=== PATIENT | female | born 1990 | race Hispanic/Latino ===

== ENCOUNTER 2017-07-06 00:01 | Emergency (ER) | payer OTHER ==
[~2017-07-06] VITALS: Ht 154.9 cm; Wt 53.1 kg
[2017-07-06] MEDS ORDERED: PANTOPRAZOLE 40 MG 10ML VIAL IV STA (00:17)
[2017-07-06] MEDS ORDERED: SODIUM CHLORIDE 0.9% 1000ML 1,000 ML IV STA (00:17)
[2017-07-06] MEDS ORDERED: ONDANSETRON HCL 4 MG ORAL DISINTEGRATING TAB PO ONE (00:30)
[2017-07-06 00:33] LABS: BASOPHILS % 0.1 % (0.0-1.0); EOSINOPHILS # (AUTO) 0.1 (0.0-0.4); HEMOGLOBIN 12.7 g/dL (12.0-16.0); LYMPHOCYTES # (AUTO) 1.3 (1.0-3.2); LYMPHOCYTES % 9.4 % (18.0-39.1); MEAN CORPUSCULAR HEMOGLOBIN 30.2 pg (28-32); MEAN CORPUSCULAR HGB CONC 33.4 g/dL (31-35); MEAN CORPUSCULAR VOLUME 90.5 fL (81-99); MONOCYTES # (AUTO) 0.4 (0.2-0.8); MONOCYTES % 2.7 % (4.4-11.3); NEUTROPHILS # (AUTO) 11.5 (2.1-6.9); NEUTROPHILS % 86.4 % (38.7-80.0); PLATELET COUNT 360 x10e3/uL (140-360); RED CELL DISTRIBUTION WIDTH 12.5 % (11.7-14.4)
[2017-07-06 00:45] LABS: INR 0.95; PARTIAL THROMBOPLASTIN TIME 24.3 seconds (23.8-35.5); PROTHROMBIN TIME 11.9 seconds (11.9-14.5)
[2017-07-06] MEDS ORDERED: MORPHINE SULFATE 2 MG/ML SYR IV STA (00:48)
[2017-07-06 00:53] LABS: ALANINE AMINOTRANSFERASE 29 IU/L (0-55); ALBUMIN 3.9 g/dL (3.5-5.0); ALBUMIN/GLOBULIN RATIO 1.1 (0.8-2.0); ALKALINE PHOSPHATASE 81 IU/L (40-150); AMYLASE 25 U/L (25-125); ANION GAP 15.6 mmol/L (8-16); BLOOD UREA NITROGEN 8 mg/dL (7-26); BUN/CREATININE RATIO 11 (6-25); CALCIUM 9.7 mg/dL (8.4-10.2); CARBON DIOXIDE 24 mmol/L (22-29); CHLORIDE 102 mmol/L (98-107); CREATINE KINASE 34 IU/L (29-168); CREATININE, SERUM 0.76 mg/dL (0.57-1.11); EST GLOMERULAR FILTRATION RATE > 60 ML/MIN (60-); GLUCOSE 117 mg/dL (74-118); LIPASE 20 U/L (8-78); POTASSIUM 3.6 mmol/L (3.5-5.1); SODIUM 138 mmol/L (136-145)
[2017-07-06 00:58] LABS: CLARITY,URINE CLEAR (CLEAR); COLOR,URINE YELLOW (YELLOW)
[2017-07-06 00:59] LABS: BILIRUBIN,URINE NEGATIVE (NEGATIVE); KETONES,URINE NEGATIVE (NEGATIVE); LEUKOCYTE ESTERASE ,URINE NEGATIVE (NEGATIVE); NITRITE,URINE NEGATIVE (NEGATIVE); PREGNANCY TEST, URINE NEGATIVE (NEGATIVE); PROTEIN,URINE DIPSTICK NEGATIVE (NEGATIVE); URINE UROBILINOGEN 0.2 mg/dL (0.2 - 1)
[2017-07-06 01:12] LABS: BACTERIA,URINE FEW /HPF; EPITHELIAL CELLS,URINE FEW /LPF; RBC,URINE 0-5 /HPF (0-5); WBC,URINE (MAN) 0-5 /HPF (0-5)
[2017-07-06] MEDS ORDERED: IOPAMIDOL 370 MG/ML 200 ML INFUS..BTL INJ ONE (01:36)
[2017-07-06] MEDS ORDERED: SODIUM CHLORIDE 0.9% 50ML 50 ML ONE (01:36)
[2017-07-06] MEDS ORDERED: PROMETHAZINE HCL (IM) 25 MG/ML VIAL ONE (01:42)
[2017-07-06] MEDS ORDERED: PROMETHAZINE 25MG/ NS 50ML (IV) IV ONE (01:45)
[2017-07-06] MEDS ORDERED: DICYCLOMINE HCL 20 MG/2 ML VIAL IM ONE (02:00)
--- NOTE | 2017-07-06 02:26 | Diagnostic Imaging Report ---
EXAM: CT ABDOMEN AND PELVIS with IV CONTRAST DATE: 07/06/2017 12:48 AM Time stamp on Exam: 0210 hours INDICATION: Abdominal pain and diarrhea COMPARISON: None TECHNIQUE: The abdomen and pelvis were scanned using a multidetector helical scanner. Coronal and sagittal reformations were obtained. Routine protocol performed. IV Contrast: 100 cc Isovue-370 Oral Contrast: Water CTDIvol has been reviewed. It is below the limits set by the Radiation Protocol Committee (RPC). FINDINGS: LOWER THORAX: No consolidations LIVER: No masses BILIARY: The gallbladder is unremarkable. No ductal dilation. SPLEEN: No masses PANCREAS: No masses ADRENALS: No nodules KIDNEYS: Symmetric perfusion. No enhancing masses. No hydronephrosis. GI TRACT: No distention, wall thickening or evidence of obstruction. Normal appendix. VESSELS: Unremarkable PERITONEUM/RETROPERITONEUM: No free air or fluid LYMPH NODES: No lymphadenopathy REPRODUCTIVE ORGANS: Unremarkable BLADDER: Unremarkable SOFT TISSUES: Unremarkable BONES: No suspicious bone lesions. IMPRESSION: Normal CT of the abdomen and pelvis. No evidence of appendicitis or bowel obstruction. Signed by: Dr. Brandie Pringle M.D. on 07/06/2017 2:23 AM
[2017-07-06 03:39] VITALS: BP 99/66
== END 2017-07-06 04:09 | disposition home or self-care (01) ==
LOC: ER 00:01
DX: R10.13 Epigastric pain (principal); R11.2 Nausea with vomiting, unspecified; R19.7 Diarrhea, unspecified; K52.9 Noninfective gastroenteritis and colitis, unspecified
CPT/HCPCS: 36415; 74177; 80053; 81001; 81025; 82150; 82550; 82553; 83690; 83735; 84484; 85025; 85610; 85730; 87086; 93005; 99284; J0500; J2270; J2550; J7030; Q9967